=== PATIENT | female | born 1975 | race Two or more races ===

== ENCOUNTER 2019-03-16 15:23 | Emergency (ER) | payer SELFPAY ==
[~2019-03-16] VITALS: Ht 170.2 cm; Wt 72.6 kg
[2019-03-16 16:02] VITALS: BP 160/85
[2019-03-16] MEDS ORDERED: KETOROLAC TROMETH 60MG/2ML VIAL IM ONE (17:30)
== END 2019-03-16 18:10 | disposition home or self-care (01) ==
LOC: EDBD 15:23 → ER 15:29
DX: S29.011A Strain of muscle and tendon of front wall of thorax, initial encounter (principal); S39.011A Strain of muscle, fascia and tendon of abdomen, initial encounter; V43.52XA Car driver injured in collision with other type car in traffic accident, initial encounter; Y93.89 Activity, other specified; Y99.8 Other external cause status; Y92.410 Unspecified street and highway as the place of occurrence of the external cause
CPT/HCPCS: 96372; 99283; J1885